=== PATIENT | female | born 1970 | race Caucasian/White ===

== ENCOUNTER 2018-12-13 00:10 | Inpatient (IN) | payer BC ==
[~2018-12-13] VITALS: Ht 167.6 cm; Wt 57.6 kg
--- NOTE | 2018-12-13 00:47 | PHYS DOC ---
Past Medical History Past Medical History: Anxiety, Bipolar, Depression, Endometriosis, Fibromyalgia, Hypertension, TIA Additional Past Medical Histor: Neuropathy, MDD, TMD Additional Past Surgical Histo: Uterine mass removed Smoking: Cigarettes Alcohol Use: None Drug Use: None Adult General Chief Complaint Chief Complaint: MECHANICAL FALL HPI HPI Patient is a 48 year old female who presents with rib pain. Patient states that she was standing on a 4 young in her garage using it as a ladder when she slipped and her left side landed on the 4 young. Patient states that this happened around ten o'clock tonight. Patient is now complaining of left rib and back pain. She states the pain is worse with taking a deep breath. Patient states that she tried to lay down at home for a few hours hoping the pain would resolve. Patient reports taking 4 Tylenol and 4 ibuprofen around ten fifteen tonight without any relief. Patient describes her pain as constant, stabbing, aching, and currently rates it to be 10/10. Patient denies hitting her head or sustaining loss of consciousness. Denies nausea and vomiting. Tetanus is not up to date. Review of Systems Review of Systems Constitutional: Denies fever or chills Eyes: Denies change in visual acuity or eye pain HENT: Denies nasal congestion or epistaxis Respiratory: Denies cough or shortness of breath Cardiovascular: Reports left lateral chest wall pain; denies palpitations. GI: Denies abdominal pain, nausea, vomiting, or diarrhea : Denies dysuria or hematuria Musculoskeletal: Denies back pain or joint pain Integument: Denies rash or skin lesions Neurologic: Denies headache, focal weakness or sensory changes Complete systems were reviewed and found to be within normal limits, except as documented in this note. Current Medications Current Medications Current Medications Medications (Trade) Dose Ordered Sig/Wisam Start Time Stop Time Status Last Admin Dose Admin Fentanyl Citrate (Fentanyl 2ml Vial) 50 mcg 1X ONCE 12/13/18 01:00 12/13/18 01:01 DC 12/13/18 01:22 50 MCG Info (CONTRAST GIVEN -- Rx MONITORING) 1 each PRN DAILY PRN 12/13/18 03:00 12/13/18 06:06 DC Iohexol (Omnipaque 300 Mg/ml) 75 ml 1X ONCE 12/13/18 03:00 12/13/18 03:01 DC 12/13/18 02:57 75 ML Sodium Chloride 1,000 ml @ 1,000 mls/hr 1X ONCE 12/13/18 01:00 12/13/18 01:59 DC 12/13/18 01:22 1,000 MLS/HR Allergies Allergies Allergies Coded Allergies Type Severity Reaction Last Updated Verified No Known Drug Allergies 12/13/18 No Physical Exam Physical Exam Constitutional: Well developed, well nourished, non-toxic appearance. HENT: Normocephalic, atraumatic, bilateral external ears normal, oropharynx moist, nose normal. Eyes: PERRL, EOMI, conjunctiva normal, no discharge. Neck: Normal range of motion, no midline cervical tenderness, supple, no stridor. Cardiovascular: Heart rate regular rhythm, no murmur Lungs & Thorax: Bilateral breath sounds clear to auscultation. Tenderness of left ribs on palpation. Abdomen: Soft, no tenderness on palpation. No rebound, guarding, or rigidity. Skin: Warm, dry, no rash. Back: No midline thoracic or lumbar tenderness on palpation, tenderness of left paralumbar area on palpation, no CVA tenderness. Extremities: No tenderness, no cyanosis, no clubbing, ROM intact, no edema. Neurologic: Alert and oriented X 3, normal motor function, normal sensory function, no focal deficits noted. Psychologic: Affect normal. Speech normal. Current Patient Data Vital Signs Vital Signs Date Time Temp Pulse Resp B/P (MAP) Pulse Ox O2 Delivery O2 Flow Rate FiO2 12/13/18 03:30 87 16 100 12/13/18 01:22 Room Air 12/13/18 00:10 97.8 123/80 (94) 97.8 Lab Values Laboratory Tests Test 12/13/18 01:05 12/13/18 01:15 POC Urine HCG, Qualitative Hcg negative (Negative) White Blood Count 15.0 x10^3/uL (4.0-11.0) H Red Blood Count 4.03 x10^6/uL (3.50-5.40) Hemoglobin 12.1 g/dL (12.0-15.5) Hematocrit 37.4 % (36.0-47.0) Mean Corpuscular Volume 93 fL (79-100) Mean Corpuscular Hemoglobin 30 pg (25-35) Mean Corpuscular Hemoglobin Concent 32 g/dL (31-37) Red Cell Distribution Width 13.0 % (11.5-14.5) Platelet Count 319 x10^3/uL (140-400) Neutrophils (%) (Auto) 87 % (31-73) H Lymphocytes (%) (Auto) 7 % (24-48) L Monocytes (%) (Auto) 5 % (0-9) Eosinophils (%) (Auto) 1 % (0-3) Basophils (%) (Auto) 1 % (0-3) Neutrophils # (Auto) 13.0 x10^3uL (1.8-7.7) H Lymphocytes # (Auto) 1.1 x10^3/uL (1.0-4.8) Monocytes # (Auto) 0.8 x10^3/uL (0.0-1.1) Eosinophils # (Auto) 0.1 x10^3/uL (0.0-0.7) Basophils # (Auto) 0.1 x10^3/uL (0.0-0.2) Segmented Neutrophils % 77 % (35-66) H Band Neutrophils % 3 % (0-9) Lymphocytes % 12 % (24-48) L Monocytes % 7 % (0-10) Eosinophils % 1 % (0-5) Platelet Estimate Adequate (ADEQUATE) Sodium Level 141 mmol/L (136-145) Potassium Level 3.2 mmol/L (3.5-5.1) L Chloride Level 103 mmol/L (98-107) Carbon Dioxide Level 27 mmol/L (21-32) Anion Gap 11 (6-14) Blood Urea Nitrogen 13 mg/dL (7-20) Creatinine 0.7 mg/dL (0.6-1.0) Estimated GFR (Cockcroft-Gault) 89.7 BUN/Creatinine Ratio 19 (6-20) Glucose Level 90 mg/dL (70-99) Calcium Level 8.7 mg/dL (8.5-10.1) Total Bilirubin 0.7 mg/dL (0.2-1.0) Aspartate Amino Transferase (AST) 20 U/L (15-37) Alanine Aminotransferase (ALT) 27 U/L (14-59) Alkaline Phosphatase 55 U/L (46-116) Total Protein 7.5 g/dL (6.4-8.2) Albumin 4.1 g/dL (3.4-5.0) Albumin/Globulin Ratio 1.2 (1.0-1.7) Lipase 114 U/L (73-393) Serum Test, Qualitative Negative (NEG) Laboratory Tests 12/13/18 01:15 Laboratory Tests 12/13/18 01:15 EKG EKG [] Radiology/Procedures Radiology/Procedures PROCEDURE: CT CHEST ABD PELVIS W/CONTRAST CT chest, abdomen and pelvis with contrast HISTORY: Lower chest pain, upper abdominal pain, fall. TECHNIQUE: Helical CT imaging of the chest, abdomen and pelvis with 75 mL Omnipaque 300 intravenous contrast. Exposure: One or more of the following individualized dose reduction techniques were utilized for this examination: 1. Automated exposure control 2. Adjustment of the mA and/or kV according to patient size 3. Use of iterative reconstruction technique Chest findings: Left posterior eighth and ninth rib acute traumatic nondisplaced fractures. No mediastinal hematoma. No traumatic thoracic aortic injury. Heart size is normal. Pulmonary vessels and esophagus are unremarkable. No significant pneumothorax. There is a tiny subcentimeter linear focus of pneumothorax at the posterior pleural space adjacent of the rib fractures. Dependent lower lobe atelectasis. No hemothorax. Left anterior sixth and seventh rib fractures somewhat obscured by patient motion. Abdomen findings: No traumatic injury of the liver, gallbladder, adrenals, pancreas, spleen or kidneys. Subcentimeter hypodensity right renal upper pole too small to characterize most likely a small cyst. No obstruction or inflammation of the upper GI tract. Appendix is negative. There is a moderate volume of stool. No abdominal fluid or hematoma. No adenopathy. Pelvis findings: 4 cm left adnexal hypodense cystic lesion. Right ovary, uterus, bladder, rectum and bones are unremarkable. IMPRESSION: 1. Left rib fractures as described above. Miniscule subcentimeter left pneumothorax. No hemothorax. See discussion above. 2. No acute process in the abdomen or pelvis. Appendix is negative. Moderate volume of stool. 4 cm cystic lesion of the left ovary. Results called to Dr. Corrales at 3:30 AM December 13, 2018 Electronically signed by: Silvio Castillo MD (12/13/2018 3:39 AM) [facility] Course & Med Decision Making Course & Med Decision Making Patient is a 48 year old female who presents to the ED for evaluation after sustaining a fall. Due to mechanism of injury and physical examination findings, CT chest, abdomen, and pelvis ordered. Patient treated with Lorazepam, Fentanyl and Zofran in the ED. Pertinent Labs and Imaging studies reviewed. (See chart for details). CT is significant for a small pneumothorax and multiple rib fractures. Supplemental O2 applied. Patient requiring admission for further evaluation and treatment. Discussed with Dr. Dr. Alanis (hospitalist) who is in agreement with admission. Discussed findings and plan with patient and family, who acknowledge understanding and agreement. Dragon Disclaimer Dragon Disclaimer This electronic medical record was generated, in whole or in part, using a voice recognition dictation system. Departure Departure Impression: Primary Impression: Pneumothorax Additional Impression: Ribs, multiple fractures Disposition: ADMITTED INPATIENT Admitting Physician: Kale Calvert Condition: GUARDED Critical Care Time Critical care time was 30 minutes which includes time at bedside, spent in discussion of patient's care with specialists and/or family members, with interpretation of laboratory and/or radiological studies and is exclusive of procedures. Problem Qualifiers Primary Impression: Pneumothorax Pneumothorax type: unspecified pneumothorax Qualified Codes: J93.9 - Pneumothorax, unspecified Additional Impression: Ribs, multiple fractures Encounter type: initial encounter Fracture type: closed Laterality: left Qualified Codes: S22.42XA - Multiple fractures of ribs, left side, initial encounter for closed fracture VIBHA CORRALES DO Dec 13, 2018 00:47
[2018-12-13] MEDS ORDERED: IV NORMAL SALINE 1000ML BAG 1,000 ML IV ONE (01:00)
[2018-12-13] MEDS ORDERED: fentaNYL PF VIAL 100 MCG/2 ML VIAL IV ONE (01:00)
[2018-12-13 01:22] LABS: BASO # 0.1 x10^3/uL (0.0-0.2); BASO % 1 % (0-3); EOS # 0.1 x10^3/uL (0.0-0.7); EOS % 1 % (0-3); HEMATOCRIT 37.4 % (36.0-47.0); HEMOGLOBIN 12.1 g/dL (12.0-15.5); LYMPH # 1.1 x10^3/uL (1.0-4.8); LYMPH % 7 % (24-48); MEAN CORPUSCULAR HEMOGLOBIN 30 pg (25-35); MEAN CORPUSCULAR HGB CONC 32 g/dL (31-37); MEAN CORPUSCULAR VOLUME 93 fL (79-100); MONO # 0.8 x10^3/uL (0.0-1.1); MONO % 5 % (0-9); NEUT % 87 % (31-73); PLATELET COUNT 319 x10^3/uL (140-400); RED BLOOD COUNT 4.03 x10^6/uL (3.50-5.40)
[2018-12-13 02:15] LABS: CALCIUM 8.7 mg/dL (8.5-10.1); CREATININE 0.7 mg/dL (0.6-1.0); GFR 89.7; POTASSIUM 3.2 mmol/L (3.5-5.1)
[2018-12-13 02:16] LABS: PREG TEST PT QUAL NEGATIVE (NEG)
[2018-12-13 02:20] LABS: ALBUMIN 4.1 g/dL (3.4-5.0); ALBUMIN/GLOBULIN RATIO 1.2 (1.0-1.7); TOTAL BILIRUBIN 0.7 mg/dL (0.2-1.0); TOTAL PROTEIN 7.5 g/dL (6.4-8.2)
[2018-12-13] MEDS ORDERED: CONTRAST GIVEN. MC PRN (03:00)
[2018-12-13] MEDS ORDERED: IOHEXOL 300 MG/ML 100ML VIAL. IV ONE (03:00)
--- NOTE | 2018-12-13 03:42 | RAD ---
CT chest, abdomen and pelvis with contrast HISTORY: Lower chest pain, upper abdominal pain, fall. TECHNIQUE: Helical CT imaging of the chest, abdomen and pelvis with 75 mL Omnipaque 300 intravenous contrast. Exposure: One or more of the following individualized dose reduction techniques were utilized for this examination: 1. Automated exposure control 2. Adjustment of the mA and/or kV according to patient size 3. Use of iterative reconstruction technique Chest findings: Left posterior eighth and ninth rib acute traumatic nondisplaced fractures. No mediastinal hematoma. No traumatic thoracic aortic injury. Heart size is normal. Pulmonary vessels and esophagus are unremarkable. No significant pneumothorax. There is a tiny subcentimeter linear focus of pneumothorax at the posterior pleural space adjacent of the rib fractures. Dependent lower lobe atelectasis. No hemothorax. Left anterior sixth and seventh rib fractures somewhat obscured by patient motion. Abdomen findings: No traumatic injury of the liver, gallbladder, adrenals, pancreas, spleen or kidneys. Subcentimeter hypodensity right renal upper pole too small to characterize most likely a small cyst. No obstruction or inflammation of the upper GI tract. Appendix is negative. There is a moderate volume of stool. No abdominal fluid or hematoma. No adenopathy. Pelvis findings: 4 cm left adnexal hypodense cystic lesion. Right ovary, uterus, bladder, rectum and bones are unremarkable. IMPRESSION: 1. Left rib fractures as described above. Miniscule subcentimeter left pneumothorax. No hemothorax. See discussion above. 2. No acute process in the abdomen or pelvis. Appendix is negative. Moderate volume of stool. 4 cm cystic lesion of the left ovary. Results called to Dr. Appiah at 3:30 AM December 13, 2018 Electronically signed by: Silvio Castillo MD (12/13/2018 3:39 AM) [id number]
[2018-12-13] MEDS ORDERED: ONDANSETRON PF 4 MG/2 ML VIAL. IV PRN (04:00)
[2018-12-13] MEDS ORDERED: fentaNYL PF VIAL 100 MCG/2 ML VIAL IV PRN (04:00)
[2018-12-13 04:35] LABS: % BANDS 3 % (0-9); % EOS 1 % (0-5); % LYMPHS 12 % (24-48); % MONOS 7 % (0-10); % SEGS 77 % (35-66); PLT ESTIMATE ADEQUATE (ADEQUATE)
[2018-12-13] MEDS ORDERED: ALPR2TAB5 PO (04:40)
[2018-12-13] MEDS ORDERED: PREG75CA PO (04:40)
[2018-12-13 04:45] LABS: BILIRUBIN,URINE NEGATIVE (NEG); CLARITY,URINE CLEAR; COLOR,URINE YELLOW; NITRITE,URINE NEGATIVE (NEG); PROTEIN,URINE NEGATIVE (NEG-TRACE)
[2018-12-13 04:48] VITALS: BP 123/82
[2018-12-13 05:20] LABS: BACTERIA,URINE FEW /HPF (0-FEW); RBC,URINE TNTC /HPF (0-2); SQUAMOUS EPITHELIAL CELL,UR FEW /LPF; WBC,URINE OCC /HPF (0-4)
--- NOTE | 2018-12-13 05:35 | NUR ---
Patient arrived to floor at 0430 and began yelling and cursing about her pain. IV pain medication was given. approximately 30 minutes later patient began cussing about not being given anything for pain and that she could not feel the Ativan that was given to her in ER. Shortly after patient came out of room in her clothes from home with a cigarette in her mouth unlit. Patient was informed that she would be given her pain medication when it was due and that smoking was not allowed in the hospital. Patient came back out of her room 10 minutes later with her coat and shoes on carrying her belongings stating that she is going home. Patients IV was removed and AMA paper work was provided and signed. Security was called and patient was escorted to her car in a wheelchair, her significant other was present to take her homer.
== END 2018-12-13 06:05 | disposition left against medical advice (07) | DRG 200 ==
LOC: ER 00:10 → 6 SOUTH 03:45
PROVIDERS: ADMIT Family Medicine; ATTEND Family Medicine
DX: S27.0XXA Traumatic pneumothorax, initial encounter (principal); S22.42XA Multiple fractures of ribs, left side, initial encounter for closed fracture; W01.0XXA Fall on same level from slipping, tripping and stumbling without subsequent striking against object, initial encounter; Y93.89 Activity, other specified; Y92.89 Other specified places as the place of occurrence of the external cause; Y99.8 Other external cause status; Z53.21 Procedure and treatment not carried out due to patient leaving prior to being seen by health care provider
CPT/HCPCS: 36415; 71260; 74177; 80053; 81001; 81025; 83690; 84703; 85007; 85025; 96361; 96374; 96375; J2060; J3010; J7030; Q9967; 99285-25